=== PATIENT | female | born 1950 | race Caucasian/White ===

== ENCOUNTER 2023-01-31 05:36 | Outpatient (CLI) | payer MEDICARE, OTHER ==
[~2023-01-31] VITALS: Ht 152.4 cm; Wt 80.1 kg
[2023-01-31] MEDS ORDERED: AMLO-250 PO (15:42)
[2023-01-31] MEDS ORDERED: FOLI0.4T6 PO (15:42)
[2023-01-31] MEDS ORDERED: LOSA100T57 PO (15:42)
[2023-01-31] MEDS ORDERED: MULT-1136 PO (15:42)
[2023-01-31] MEDS ORDERED: CETI5TAB10 PO (15:42)
[2023-01-31] MEDS ORDERED: OMEP40CA6 PO (15:42)
[2023-01-31] MEDS ORDERED: ASPI-999 PO (15:42)
[2023-01-31] MEDS ORDERED: CITA20TA9 PO (15:42)
[2023-01-31] MEDS ORDERED: MELO15TA39 PO (15:42)
[2023-01-31] MEDS ORDERED: CALC1TAB29 PO (15:42)
[2023-01-31] MEDS ORDERED: BACL20TA PO (15:42)
[2023-01-31] MEDS ORDERED: ACET-2650 PO (15:42)
== END 2023-01-31 17:14 | disposition home or self-care (01) ==
LOC: PREOP 05:36
PROVIDERS: ATTEND Surgery
DX: Z01.818 Encounter for other preprocedural examination (principal)

== ENCOUNTER 2023-02-02 07:56 | Day surgery (SDC) | payer MEDICARE, OTHER ==
[2023-02-02] VITALS (8 sets, daily range): BP systolic 116–148; BP diastolic 46–76
[~2023-02-02] VITALS: Ht 152.4 cm; Wt 80.1 kg
[~2023-02-02 07:56] MED LIST: ACET-2650 PO; AMLO-250 PO; ASPI-999 PO; BACL20TA PO; CALC1TAB29 PO; CETI5TAB10 PO; CITA20TA9 PO; FOLI0.4T6 PO; LOSA100T57 PO; MELO15TA39 PO; MULT-1136 PO; OMEP40CA6 PO
[2023-02-02] MEDS ORDERED: ceFAZolin INJECTION 2,000 MG in NS (IVPB) 50 ML IV ONE (08:30)
[2023-02-02] MEDS ORDERED: LACTATED RINGERS 1,000 ML IV PRN (08:30)
[2023-02-02] MEDS ORDERED: 0.9% SODIUM CHLORIDE PF INJ 20 ML VIAL ONE (08:56)
[2023-02-02] MEDS ORDERED: BUP/EPI 0.25% 1:200,000 (MARCAINE) 30 ML VIAL ONE (08:56)
[2023-02-02] MEDS ORDERED: HEParin (CENTRAL IV FLUSH) 500 UNIT/5 ML SYR ONE (08:56)
[2023-02-02] MEDS ORDERED: PROPOFOL INJECTION 50 ML IV ONE (09:39)
--- NOTE | 2023-02-02 10:08 | Progress Note-Pre Operative ---
Pre-Operative Progress Note Date H&P Reviewed: February 02, 2023 Time H&P Reviewed: 10:07 History & Physical: H&P Reviewed, Patient Examed, No changes noted Pre-Operative Diagnosis: lung cancer RADHA PLASENCIA DO February 02, 2023 10:08
[2023-02-02] MEDS ORDERED: HEParin (CENTRAL IV FLUSH) 500 UNIT/5 ML SYR XX ONE (10:27)
[2023-02-02] MEDS ORDERED: proPOfol 200 MG/20 ML (DIPRIVAN) VIAL IV ONE (10:35)
--- NOTE | 2023-02-02 10:48 | Discharge Inst-Simple/Standard ---
Discharge Inst-Standard Patient Instructions/Follow Up Plan of Care/Instructions/FU: 2 weeks eileen Activity as Tolerated: No Discharge Diet: Regular Diet Other Inst to Patient Follow up Appt: Make appointment for 2 week. Instructions: No lifting greater than 10 pounds. No strenuous activity. May shower in 24 hours, no tub bath or soaking. Use incentive spirometer at home as directed. No Smoking Skin/Wound Care: You have special glue over your incision that will fall off on it's own. Ice pack on 15 min and off 30 min and repeat for first 48 hours. This reduces swelling and discomfort. Symptoms to Report: Appetite Changes, Extremity Discoloration, Numbness/Tingling, Swelling Increased, Bleeding Excessive, Eyesight Changes, Pain Increased, Urine Color Change, Constipation(Persistent), Fever over 101 degree F, Pain/Pressure in chest, Urinating Difficulty, Cough Up/Vomit Blood, Heart Beat Irreg/Pounding, Pain/Pressure in jaw, Vaginal Bleeding Increase, Cramps in feet or legs, Lightheadedness, Pain/Pressure in shoulder, Diarrhea(Persistent), Memory Changes Suddenly, Questions/Concerns, Weight gain consecutive days, Dizziness/Fainting, Nausea/Vomiting, Shortness of Breath, Weight gain over 2 pounds If questions or concerns contact your physician Or seek help at emergency department. RADHA PLASENCIA DO February 02, 2023 10:48
--- NOTE | 2023-02-02 10:51 | Progress Note-Post Operative ---
Post-Operative Progess Note Surgeon (s)/Ophthalmic Surgeon (s) Surgeon RADHA PLASENCIA DO Ophthalmic Surgeon: na Pre-Operative Diagnosis lung cancer Post-Operative Diagnosis same Procedure & Operative Findings Date of Procedure 02/02/23 Procedure Performed/Findings PROCEDURE: Left internal jugular port placement using ultrasound guidance. COMPLICATIONS: None. INDICATIONS: The patient is a 72 year old female with lung cancer. Patient understands the risks and benefits of port placement and wished to proceed with the procedure. Consent was signed on the chart. PROCEDURE: The patient was taken to the operating suite, was prepped and draped in the sterile fashion. A surgical pause was performed. Ultrasound was used to locate the internal jugular vein. Once located anesthetic was infiltrated above it. Using micro-access kit, the right internal vein was accessed. Dark nonpulsatile blood was withdrawn. The wire was inserted. Fluoroscopy assured proper placement. The needle was removed. The micro-access dilator was advanced over the wire and the wire was removed. The regular wire was inserted and fluoroscopy assured proper placement. The wire was then secured. Local anesthetic was used to anesthetize from the neck for tunneling down to the right chest and for pocket creation. A 15 blade scalpel was used to make an incision over the left chest. Cautery was used to dissect down to the pectoral fascia. A pocket was created with blunt dissection. The dilator sheath was then advanced over the wire under fluoroscopy and the dilator and wire were removed. The Groshong catheter was inserted through the sheath and the sheath was then removed. The Gro[place]ong wire was removed. The catheter was then tunneled to the right chest pocket. Fluoroscopy was used to cut to length and this was then attached to the port which was then placed within the pocket. The port was then accessed without difficulty. It was then flushed with saline and then heparin. The subcutaneous tissues were then reapproximated using 3-0 Vicryl. The areas were then washed and dried. Skin Affix was placed over incision. The insertion point of the neck Skin Affix was placed over the incision. The patient tolerated the procedure well without complication and was taken to recovery room in stable condition. Chest x-ray is pending. Anesthesia Type mac c local Estimated Blood Loss Estimated blood loss (mL): minimal Specimens/Packing Specimens Removed RADHA Hall DO February 02, 2023 10:51
[2023-02-02] MEDS ORDERED: MEPERIDINE (DEMEROL) INJ 50 MG/ML IVP ONE (11:00)
[2023-02-02] MEDS ORDERED: fentaNYL INJ 100 MCG/2 ML AMP IVP ONE (11:00)
[2023-02-02] MEDS ORDERED: ONDANSETRON 4 MG/2 ML (SDV) Z0FRAN IVP PRN (11:00)
--- NOTE | 2023-02-02 11:08 | Diagnostic Imaging Report ---
INDICATION: Port placement Single AP view of the chest is obtained. Heart size and pulmonary vascularity are within normal limits. There is mild background emphysema. Extensive airspace disease occupies the right lower lobe and probable lateral middle lobe segment. There has been placement of left anterior chest wall port with catheter tip reaching the mid superior vena cava. There is no evidence of pneumothorax or other acute complication. IMPRESSION: Extensive infiltrate which may represent pneumonia in the right middle and lower lobes. The possibility of central obstructing lesion is not excluded and correlation with bronchoscopy may be of value. There is no evidence of complication related to left anterior chest wall port placement. Dictated by: Dictated on workstation # [id number]
[2023-02-02] MEDS ORDERED: BUP/EPI 0.25% 1:200,000 (MARCAINE) 30 ML VIAL INJ ONE (11:21)
[2023-02-02] MEDS ORDERED: 0.9% SODIUM CHLORIDE PF INJ 20 ML VIAL IR ONE (11:22)
--- NOTE | 2023-02-02 15:46 | Diagnostic Imaging Report ---
INDICATION: Port-A-Cath placement. TECHNIQUE: Intraoperative fluoroscopy views were obtained during Port-A-Cath placement in Surgery. Three views were obtained with 50.8 seconds of fluoroscopy time used. FINDINGS: The intraoperative views demonstrate a port over the left chest with the catheter entering the left internal jugular vein and the catheter tip overlying the SVC. The study is otherwise limited. IMPRESSION: Intraoperative views were obtained during Port-A-Cath placement as above. Dictated by: Dictated on workstation # [id number]
== END 2023-02-02 12:30 ==
LOC: SDC 07:56
PROVIDERS: ATTEND Surgery
DX: C34.90 Malignant neoplasm of unspecified part of unspecified bronchus or lung (principal); I87.2 Venous insufficiency (chronic) (peripheral); Z87.891 Personal history of nicotine dependence
CPT/HCPCS: 36561; 71045; 76000; 87081; C1788

== ENCOUNTER → 2023-02-08 | Outpatient (RCR) | payer MEDICARE, OTHER | LOC: ONC 01-30 09:39 | PROVIDERS: ATTEND Radiology Radiation Oncology | DX: Z51.0 Encounter for antineoplastic radiation therapy (principal); C34.81 Malignant neoplasm of overlapping sites of right bronchus and lung; J44.9 Chronic obstructive pulmonary disease, unspecified; E78.00 Pure hypercholesterolemia, unspecified; I10 Essential (primary) hypertension | CPT/HCPCS: 77300; 77301; 77334; 77338; 77386; 77470; 99205 ==

== ENCOUNTER → 2023-03-10 | Outpatient (RCR) | payer MEDICARE, OTHER ==
[~2023-03-10] MED LIST changes: -LOSA100T57 PO; +LOSA100T58 PO
== END | disposition home or self-care (01) ==
LOC: ONC 02-09 08:55
PROVIDERS: ATTEND Radiology Radiation Oncology
DX: Z51.0 Encounter for antineoplastic radiation therapy (principal); C34.90 Malignant neoplasm of unspecified part of unspecified bronchus or lung; I87.2 Venous insufficiency (chronic) (peripheral)
CPT/HCPCS: 77336; 77386

== ENCOUNTER 2023-03-23 10:37 | Outpatient (RCR) | payer MEDICARE, OTHER ==
[2023-04-09] MEDS ORDERED: AZIT250T12 PO (23:43)
[2023-04-09] MEDS ORDERED: CEFP200T2 PO (23:43)
== END 2023-04-10 | disposition home or self-care (01) ==
LOC: ONC 10:37
PROVIDERS: ATTEND Radiology Radiation Oncology
DX: Z51.0 Encounter for antineoplastic radiation therapy (principal); C34.90 Malignant neoplasm of unspecified part of unspecified bronchus or lung; I87.2 Venous insufficiency (chronic) (peripheral)
CPT/HCPCS: 77386; G0463; 77336

== ENCOUNTER 2023-04-09 21:49 | Emergency (ER) | payer MEDICARE, OTHER ==
[~2023-04-09] VITALS: Ht 152.4 cm; Wt 80.0 kg
[2023-04-09] MEDS ORDERED: ACETAMINOPHEN 500 MG TABLET PO STA (21:53)
--- NOTE | 2023-04-09 22:00 | ED General ---
General Chief Complaint: Altered Mental Status Stated Complaint: CONFUSION Nursing Triage Note: PT TO ED BY EMS WITH C/O CONFUSION. 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 History of Present Illness Date Seen by Provider: Apr 09, 2023 Time Seen by Provider: 21:57 Initial Comments 73-year-old female brought in by EMS due to confusion. Patient had a cute onset of confusion approxi-1 hour ago. Febrile upon arrival. EMS reports that prior to her confusion she was fine per family. She does have a history of lung cancer and recently stopped chemo because her platelets were getting too low. Allergies and Home Medications Allergies Coded Allergies: azathioprine (Verified Allergy, Severe, 02/02/23) codeine (Verified Allergy, Severe, 02/02/23) hydralazine (Verified Allergy, Severe, 02/02/23) latex (Verified Allergy, Severe, 02/02/23) lorazepam (Verified Allergy, Severe, 02/02/23) midazolam (Verified Allergy, Severe, 02/02/23) Patient Home Medication List Home Medication List Reviewed: Yes Acetaminophen (Tylenol Arthritis) 650 Mg Tablet.er, 2 TAB PO Q8H, (Reported) Entered as Reported by: Romi Erazo on 01/31/23 1542 Amlodipine Besylate (Amlodipine Besylate) 5 Mg Tablet, 5 MG PO DAILY, (Reported) Entered as Reported by: Romi Erazo on 01/31/23 154 Aspirin (Aspirin) 81 Mg Tab.chew, 81 MG PO DAILY, (Reported) Entered as Reported by: Romi Erazo on 01/31/23 154 Azithromycin (Azithromycin) 250 Mg Tablet, 250 MG PO UD Prescribed by: HARMONY DONG on 04/09/232342 Baclofen (Baclofen) 20 Mg Tablet, 20 MG PO BID PRN for SPASMS, (Reported) Entered as Reported by: Romi Erazo on 01/31/23 154 Calcium Carbonate/Vitamin D3 (Os-Yon 500+D3 Caplet) 500 Mg Calcium-15 Mcg (600 Unit) Tablet, 1 EACH PO DAILY, (Reported) Entered as Reported by: Romi Erazo on 01/31/23 154 Cefpodoxime Proxetil (Cefpodoxime Proxetil) 200 Mg Tablet, 200 MG PO BID Prescribed by: HARMONY DONG on 04/09/232342 Cetirizine HCl (Cetirizine HCl) 5 Mg Tab.chew, 10 MG PO DAILY PRN for ALLERGIES, (Reported) Entered as Reported by: Romi Erazo on 01/31/231541 Citalopram Hydrobromide (Citalopram HBr) 20 Mg Tablet, 20 MG PO DAILY, (Reported) Entered as Reported by: Romi Erazo on 01/31/231541 Folic Acid (Folic Acid) 0.4 Mg Tablet, 0.4 MG PO DAILY, (Reported) Entered as Reported by: Romi Erazo on 01/31/231541 Losartan Potassium (Losartan Potassium) 100 Mg Tablet, 100 MG PO DAILY, (Reported) Entered as Reported by: Romi Erazo on 01/31/231541 Meloxicam (Meloxicam) 15 Mg Tablet, 15 MG PO DAILY, (Reported) Entered as Reported by: Romi Erazo on 01/31/231541 Multivitamin (Multivitamin) 1 Each Tablet, 1 EACH PO DAILY, (Reported) Entered as Reported by: Romi Erazo on 01/31/231541 Omeprazole (Omeprazole) 40 Mg Capsule.dr, 40 MG PO DAILY, (Reported) Entered as Reported by: Romi Erazo on 01/31/231541 Review of Systems Review of Systems Constitutional: see HPI, fever Respiratory: no symptoms reported Cardiovascular: no symptoms reported Gastrointestinal: no symptoms reported Genitourinary: no symptoms reported Psychiatric/Neurological: See HPI Past Ybrhyts-Qkwids-Wghvju Hx Immunizations Up To Date Tetanus Booster (TDap): Unknown First/Initial COVID19 Vaccinat: 10/01 Second COVID19 Vaccination Phillip: 11/01 Third COVID19 Vaccination Date: 05/01 Seasonal Allergies Seasonal Allergies: Yes Past Medical History Surgeries: Yes Breast, Orthopedic Respiratory: No Currently Using CPAP: No Currently Using BIPAP: No Atrial Fibrillation, Hypertension, Syncope Neurological: No Sexually Transmitted Disease: No Genitourinary: No Gastrointestinal: Yes Gastroesophageal Reflux, Chronic Diarrhea Musculoskeletal: Yes (OSTEOPENIA) Back Injury, Chronic Back Pain, Fractures Endocrine: No HEENT: No Loss of Vision: Denies Hearing Impairment: Denies Cancer: Yes Lung, Breast Did You Recieve Any Treatments: Yes What Type of Treatment Did You: Chemotherapy, Radiation, Surgical Intervention Psychosocial: Yes Anxiety, Depression Integumentary: Yes Eczema Blood Disorders: No Adverse Reaction/Blood Tranf: No Physical Exam Vital Signs Vital Signs - First Documented 04/09/23 21:49 Temp 38.7 Pulse 87 Resp 21 B/P (MAP) 107/93 (98) Pulse Ox 95 O2 Delivery Room Air Capillary Refill : Less Than 3 Seconds Height, Weight, BMI Height: '" Weight: lbs. oz. kg; 34.00 BMI Method: General Appearance: Chronically ill, Other (febrile, confused ) HEENT: PERRL/EOMI Respiratory: No Accessory Muscle Use, No Respiratory Distress Cardiovascular: Regular Rate, Rhythm, No Edema Gastrointestinal: Non Tender, Soft Extremity: Normal Capillary Refill Neurologic/Psychiatric: Other (confused, doesnt answer questions. ) Skin: Normal Color, Warm/Dry Focused Exam Lactate Level 04/09/23 22:09: Lactic Acid Level 1.25 Lactic Acid Level Laboratory Tests Test 04/09/23 22:09 Lactic Acid Level 1.25 MMOL/L (0.50-2.00) Progress/Results/Core Measures Suspected Sepsis SIRS Temperature: Pulse: 87 Respiratory Rate: 21 Laboratory Tests 04/09/23 22:09: White Blood Count 15.5H Blood Pressure 107 /93 Mean: 98 04/09/23 22:09: Lactic Acid Level 1.25 Laboratory Tests 04/09/23 22:09: Creatinine 0.81, Platelet Count 234, Total Bilirubin 0.7 Results/Orders Lab Results Laboratory Tests Test 04/09/23 22:06 04/09/23 22:09 04/09/23 23:05 Range/Units Influenza Type A (RT-PCR) Not Detected Not Detecte Influenza Type B (RT-PCR) Not Detected Not Detecte SARS-CoV-2 RNA (RT-PCR) Not Detected Not Detecte White Blood Count 15.5 H 4.3-11.0 10^3/uL Red Blood Count 2.77 L 3.80-5.11 10^6/uL Hemoglobin 9.1 L 11.5-16.0 g/dL Hematocrit 28 L 35-52 % Mean Corpuscular Volume 102 H 80-99 fL Mean Corpuscular Hemoglobin 33 25-34 pg Mean Corpuscular Hemoglobin Concent 32 32-36 g/dL Red Cell Distribution Width 21.3 H 10.0-14.5 % Platelet Count 234 130-400 10^3/uL Mean Platelet Volume 10.5 9.0-12.2 fL Immature Granulocyte % (Auto) 2 % Neutrophils (%) (Auto) 80 H 42-75 % Lymphocytes (%) (Auto) 7 L 12-44 % Monocytes (%) (Auto) 11 0-12 % Eosinophils (%) (Auto) 0 0-10 % Basophils (%) (Auto) 0 0-10 % Neutrophils # (Auto) 12.4 H 1.8-7.8 10^3/uL Lymphocytes # (Auto) 1.1 1.0-4.0 10^3/uL Monocytes # (Auto) 1.7 H 0.0-1.0 10^3/uL Eosinophils # (Auto) 0.0 0.0-0.3 10^3/uL Basophils # (Auto) 0.0 0.0-0.1 10^3/uL Immature Granulocyte # (Auto) 0.3 H 0.0-0.1 10^3/uL Neutrophils % (Manual) 83 % Lymphocytes % (Manual) 8 % Monocytes % (Manual) 8 % Band Neutrophils 1 % Hypochromasia MODERATE Anisocytosis SLIGHT Sodium Level 136 135-145 MMOL/L Potassium Level 3.6 3.6-5.0 MMOL/L Chloride Level 101 98-107 MMOL/L Carbon Dioxide Level 22 21-32 MMOL/L Anion Gap 13 5-14 MMOL/L Blood Urea Nitrogen 22 H 7-18 MG/DL Creatinine 0.81 0.60-1.30 MG/DL Estimat Glomerular Filtration Rate 78 BUN/Creatinine Ratio 27 Glucose Level 128 H 70-105 MG/DL Lactic Acid Level 1.25 0.50-2.00 MMOL/L Calcium Level 9.5 8.5-10.1 MG/DL Corrected Calcium 10.1 8.5-10.1 MG/DL Magnesium Level 1.5 L 1.6-2.4 MG/DL Total Bilirubin 0.7 0.1-1.0 MG/DL Aspartate Amino Transf (AST/SGOT) 18 5-34 U/L Alanine Aminotransferase (ALT/SGPT) 17 0-55 U/L Alkaline Phosphatase 110 40-136 U/L Total Protein 6.8 6.4-8.2 GM/DL Albumin 3.2 3.2-4.5 GM/DL Urine Color YELLOW Urine Clarity CLEAR Urine pH 8.5 5-9 Urine Specific [place] 1.010 L 1.016-1.022 Urine Protein 1+ H NEGATIVE Urine Glucose (UA) NEGATIVE NEGATIVE Urine Ketones NEGATIVE NEGATIVE Urine Nitrite NEGATIVE NEGATIVE Urine Bilirubin NEGATIVE NEGATIVE Urine Urobilinogen 1.0 < = 1.0 MG/DL Urine Leukocyte Esterase NEGATIVE NEGATIVE Urine RBC (Auto) NEGATIVE NEGATIVE Urine RBC NONE /HPF Urine WBC NONE /HPF Urine Squamous Epithelial Cells 2-5 /HPF Urine Crystals NONE /LPF Urine Bacteria TRACE /HPF Urine Casts NONE /LPF Urine Mucus SMALL H /LPF Urine Culture Indicated NO My Orders Orders - DONG,HARMONY L DO Cbc With Automated Diff (04/09/23 21:53) Comprehensive Metabolic Panel (04/09/23 21:53) Lactic Acid Analyzer (04/09/23 21:53) Magnesium (04/09/23 21:53) Ua Culture If Indicated (04/09/23 21:53) Blood Culture (04/09/23 21:53) Influenza A And B By Pcr (04/09/23 21:53) Covid 19 Inhouse Test (04/09/23 21:53) Acetaminophen Tablet (Acetaminophen Ta (04/09/23 21:53) Chest 1 View, Ap/Pa Only (04/09/23 21:53) Ct Head Wo (04/09/23 21:53) Manual Differential (04/09/23 22:09) Cefepime Injection (Cefepime Injection) (04/09/23 23:00) Straight Cath For Spec.-Adult (04/09/23 23:06) Ibuprofen Tablet (Motrin Tablet) (04/09/23 23:45) Medications Given in ED Current Medications Medications Dose Ordered Sig/Josh Route Start Time Stop Time Status Last Admin Dose Admin Cefepime HCl 1000 mg/Sodium Chloride 50 ml @ 100 mls/hr ONCE ONCE IV 04/09/23 23:00 04/09/23 23:29 DC 04/09/23 22:53 100 MLS/HR Vital Signs/I&O 04/09/23 04/09/23 04/09/23 21:49 22:25 23:33 Temp 38.7 37.5 Pulse 87 101 Resp 21 B/P (MAP) 107/93 (98) 133/98 (110) Pulse Ox 95 O2 Delivery Room Air Room Air Capillary Refill : Less Than 3 Seconds Blood Pressure Mean: 98 Progress Note : Progress Note Patient was febrile upon arrival with some mild confusion. Her confusion improved as her fever improved after being treated. Patient diagnostic studies were ordered, reviewed and interpreted by me. She does have a slight elevation of white count however her reports that she is currently not on some steroids. Patient's CT head was reviewed and discussed with radiologist with no acute findings. Patient's chest x-ray was reviewed and shows questionable infiltrate however it does show improvement from her previous x-ray 2 months ago. She also does have known lung cancer and mass on the right side. Patient reports that she has been having some chills and fever on and off for the last couple days. he reports she has a chronic cough and does not feel that she has had a significant increase in her cough. Discussed outpatient treatment versus hospitalization. Patient and her would prefer to try outpatient treatment first. She does not currently have any signs of early sepsis. Patient has normal vital signs with mild white count that could be from steroids. Patient early for potential sepsis with cefepime IV x1. Upon completion of the evaluation she does not appear to be septic or in early sepsis. I will treat her with IV antibiotics on an outpatient basis due to fever and her underlying medical problems with likely source being a pneumonia. Fever control with Tylenol and ibuprofen. They will the ER with any concerns. Patient is at risk for morbidity and mortality based on her social determinants of health and her medical history. Stable upon discharge. Case was discussed with both her and her . Departure Impression Primary Impression: Pneumonia Qualified Codes: J18.9 - Pneumonia, unspecified organism Additional Impression: Episode of confusion Disposition: 01 HOME, SELF-CARE Condition: Stable Departure-Patient Inst. Referrals: CRISTO JAMES MD (PCP) Primary Care Physician Patient Instructions: Pneumonia, Adult ED Add. Discharge Instructions: With Dr. James in the next couple days for recheck. Return to the ER with any concerns. tylenol Or ibuprofen as needed for fever All discharge instructions reviewed with patient and/or family. Voiced understanding. Scripts Azithromycin (Azithromycin) 250 Mg Tablet 250 MG PO UD, #6 TAB TAKE 2 TABLETS ON DAY ONE THEN TAKE 1 TABLET DAILY FOR FOUR MORE DAYS Prov: HARMONY DONG DO 04/09/23 Cefpodoxime Proxetil (Cefpodoxime Proxetil) 200 Mg Tablet 200 MG PO BID, #10 TAB Prov: HARMONY DONG DO 04/09/23 HARMONY DONG DO Apr 09, 2023 22:00
[2023-04-09 22:29] LABS: BASOPHILS % (AUTO) 0 % (0-10); EOSINOPHILS % (AUTO) 0 % (0-10); HEMATOCRIT 28 % (35-52); HEMOGLOBIN 9.1 g/dL (11.5-16.0); LYMPHOCYTES # (AUTO) 1.1 10^3/uL (1.0-4.0); LYMPHOCYTES % (AUTO) 7 % (12-44); MEAN CORPUSCULAR HEMOGLOBIN 33 pg (25-34); MEAN CORPUSCULAR HGB CONC 32 g/dL (32-36); MEAN CORPUSCULAR VOLUME 102 fL (80-99); MEAN PLATELET VOLUME 10.5 fL (9.0-12.2); MONOCYTES # (AUTO) 1.7 10^3/uL (0.0-1.0); MONOCYTES % (AUTO) 11 % (0-12); NEUTROPHILS # (AUTO) 12.4 10^3/uL (1.8-7.8); NEUTROPHILS % (AUTO) 80 % (42-75); PLATELET COUNT 234 10^3/uL (130-400); WHITE BLOOD COUNT 15.5 10^3/uL (4.3-11.0)
[2023-04-09 22:43] LABS: ALBUMIN 3.2 GM/DL (3.2-4.5)
[2023-04-09 22:44] LABS: POTASSIUM 3.6 MMOL/L (3.6-5.0)
[2023-04-09 22:45] LABS: CALCIUM 9.5 MG/DL (8.5-10.1)
[2023-04-09 22:46] LABS: TOTAL PROTEIN 6.8 GM/DL (6.4-8.2)
[2023-04-09 22:48] LABS: BILIRUBIN,TOTAL 0.7 MG/DL (0.1-1.0)
[2023-04-09 22:50] LABS: CREATININE SERUM 0.81 MG/DL (0.60-1.30)
[2023-04-09] MEDS ORDERED: CEFEPIME 1 GM/10 ML VIAL ONE (22:50)
[2023-04-09 22:52] LABS: MAGNESIUM 1.5 MG/DL (1.6-2.4)
[2023-04-09] MEDS ORDERED: CEFEPIME INJECTION 1,000 MG in NS (IVPB) 50 ML 50 ML IV ONE (23:00)
[2023-04-09 23:09] LABS: ANISOCYTOSIS SLIGHT; BAND NEUTROPHILS 1 %; HYPOCHROMASIA MODERATE; LYMPHOCYTES % (MANUAL) 8 %; MONOCYTES % (MANUAL) 8 %; NEUTROPHILS % (MANUAL) 83 %
[2023-04-09 23:13] LABS: BILIRUBIN,URINE NEGATIVE (NEGATIVE); CLARITY,URINE CLEAR; COLOR,URINE YELLOW; GLUCOSE, URINE (UA) NEGATIVE (NEGATIVE); KETONES,URINE NEGATIVE (NEGATIVE); LEUKOCYTE ESTERASE ,URINE NEGATIVE (NEGATIVE); NITRITE,URINE NEGATIVE (NEGATIVE); PH,URINE 8.5 (5-9); PROTEIN,URINE 1+ (NEGATIVE)
[2023-04-09 23:29] LABS: BACTERIA,URINE TRACE /HPF
[2023-04-09] MEDS ORDERED: CEFP200T2 PO (23:43)
[2023-04-09] MEDS ORDERED: AZIT250T12 PO (23:43)
[2023-04-09] MEDS ORDERED: IBUPROFEN TABLET 200 MG TAB PO ONE (23:45)
[2023-04-09 23:59] VITALS: BP 133/98
--- NOTE | 2023-04-10 04:35 | Diagnostic Imaging Report ---
PROCEDURE: CT head without contrast. TECHNIQUE: Multiple contiguous axial images were obtained through the brain without the use of intravenous contrast. Auto Exposure Controls were utilized during the CT exam to meet ALARA standards for radiation dose reduction. INDICATION: Altered mental status and acute confusion. CT HEAD: CT images of the head were obtained. FINDINGS: Ventricles and sulci are within normal limits for size. There is no intracranial hemorrhage identified. There is no abnormal mass effect or shift of midline structures. Paranasal sinuses are clear. Degenerative findings are present in the right temporal mandibular joint. IMPRESSION: Unremarkable CT of the head. Dictated by: Dictated on workstation # [id number]
--- NOTE | 2023-04-10 04:49 | Diagnostic Imaging Report ---
INDICATION: Confusion and fever AP view of the chest is obtained with comparison made to the study of 02/02/2023. There is continued abnormal airspace disease involving predominantly the right lower lobe although aeration is mildly improved when compared to previous study. There does appear to be an increase in fullness in the left hilum. Left anterior chest wall port is in place with catheter tip projecting over the midsuperior vena cava. No pneumothorax is noted. IMPRESSION: Continued parenchymal density in the right lower lobe may represent residual or recurrent pneumonia. Again, there is concern for central obstructing mass with apparent developing infiltrate or adenopathy in the left hilar region. Cross-sectional imaging would be useful for assessment. Dictated by: Dictated on workstation # [id number]
== END 2023-04-10 00:05 | disposition home or self-care (01) ==
LOC: EDUNIT# 21:49 → ER 21:50
DX: J18.9 Pneumonia, unspecified organism (principal); Z85.118 Personal history of other malignant neoplasm of bronchus and lung; Z20.822 Contact with and (suspected) exposure to COVID-19; Z91.040 Latex allergy status
CPT/HCPCS: 36415; 51701; 70450; 71045; 80053; 81000; 83605; 83735; 85007; 85027; 87040; 87636

== ENCOUNTER → 2023-05-11 | Outpatient (RCR) | payer MEDICARE, OTHER ==
[~2023-05-11] MED LIST changes: +AZIT250T12 PO; +CEFP200T2 PO
== END ==
LOC: ONC 10:21
PROVIDERS: ATTEND Radiology Radiation Oncology
DX: C34.90 Malignant neoplasm of unspecified part of unspecified bronchus or lung (principal); I87.2 Venous insufficiency (chronic) (peripheral)
CPT/HCPCS: 99213